=== PATIENT | male | born 2005 | race Caucasian/White ===

== ENCOUNTER 2023-03-05 23:35 | Emergency (ER) | payer SELFPAY ==
[~2023-03-05] VITALS: Ht 175.3 cm; Wt 76.2 kg
[2023-03-05 23:39] VITALS: BP 99/75; PULSE 92; RESP 16; TEMP 98.2; O2SAT 98
[2023-03-05] MEDS ORDERED: acetaminophen 325mg tablet PO ONE (23:50)
[2023-03-05] MEDS ORDERED: ibuprofen tablet 400 MG TABLET PO ONE (23:50)
== END 2023-03-06 00:30 | disposition home or self-care (01) ==
LOC: EDUNIT# 23:35 → ER 23:37
DX: M25.532 Pain in left wrist (principal); X58.XXXA Exposure to other specified factors, initial encounter; Y93.89 Activity, other specified; Y92.89 Other specified places as the place of occurrence of the external cause; Y99.8 Other external cause status
CPT/HCPCS: 29125; 73110; 99283

== ENCOUNTER 2023-04-01 12:49 | Emergency (ER) | payer OTHER ==
[~2023-04-01] VITALS: Ht 175.3 cm; Wt 73.6 kg
[2023-04-01 18:05] LABS: BASOPHILS % (AUTO) 0.3 % (0-1); EOSINOPHILS # (AUTO) 0.3 X10'3 (0-0.9); EOSINOPHILS % (AUTO) 2.8 % (0-6); HEMATOCRIT 47.7 % (42.0-52.0); HEMOGLOBIN 16.1 g/dl (14.0-17.9); LYMPHOCYTES # (AUTO) 3.1 X10'3 (1.1-4.8); LYMPHOCYTES % (AUTO) 26.6 % (21-51); MEAN CORPUSCULAR HEMOGLOBIN 28.8 PG (27.0-31.0); MEAN CORPUSCULAR HGB CONC 33.6 g/dL (33.0-36.5); MEAN CORPUSCULAR VOLUME 85.6 FL (78-98); MEAN PLATELET VOLUME 8.4 FL (7.4-10.4); MONOCYTES # (AUTO) 0.9 X10'3 (0-0.9); MONOCYTES % (AUTO) 7.2 % (2-12); NEUTROPHILS # (AUTO) 7.4 X10'3 (1.8-7.7); NEUTROPHILS % (AUTO) 63.1 % (42-75); PLATELET COUNT 270 X10'3 (140-440); RED BLOOD COUNT 5.58 X10'6 (4.70-6.10); RED CELL DISTRIBUTION WIDTH 13.8 % (11.5-14.5); WHITE BLOOD COUNT 11.8 X10'3 (4.5-11.0)
[2023-04-01] MEDS ORDERED: LORazepam 1 MG tablet PO ONE (18:05)
[2023-04-01 18:14] LABS: ALANINE AMINOTRANSFERASE 27 U/L (12-78); ALBUMIN 4.4 G/DL (3.4-5.0); ALKALINE PHOSPHATASE 104 IU/L (20-180); ANION GAP 6 (8-16); ASPARTATE AMINO TRANSFERASE 18 U/L (10-37); BILIRUBIN,TOTAL 0.3 MG/DL (0.1-1.0); BLOOD UREA NITROGEN 15 MG/DL (7-18); BUN/CREATININE RATIO 16.3 (10.0-20.0); CALCIUM 9.2 MG/DL (8.5-10.1); CHLORIDE 102 MMOL/L (99-107); CREATININE 0.92 MG/DL (0.60-1.10); GLUCOSE 120 MG/DL (70-104); POTASSIUM 3.9 MMOL/L (3.5-5.1); SODIUM 139 MMOL/L (135-145); TOTAL CARBON DIOXIDE 30.6 MMOL/L (24-32); TOTAL PROTEIN 8.7 G/DL (6.4-8.2); eCRCL 129 ML/MIN; eGFR > 90 ML/MIN
[2023-04-01 18:24] LABS: ETHANOL < 10 MG/DL (<10); SALICYLATE 1.6 MG/DL (4.0-20.0); THYROID STIMULATING HORMONE 0.89 ulU/ml (0.34-4.50)
[2023-04-01 18:29] LABS: ACETAMINOPHEN < 2.0 UG/ML (10-30)
[2023-04-01] MEDS ORDERED: OLAN10TA73 PO (19:30)
[2023-04-01 20:58] VITALS: BP 101/51; PULSE 58; RESP 18; TEMP 97.8; O2SAT 95
[2023-04-01] MEDS ORDERED: olanzapine 10mg tablet PO SCH (21:00)
[2023-04-02 06:19] LABS: URINE AMPHETAMINE SCREEN NEGATIVE (Neg); URINE BARBITUATE SCREEN NEGATIVE (Neg); URINE BENZODIAZEPINES SCREEN NEGATIVE (Neg); URINE CANNABINOID SCREEN POSITIVE (Neg); URINE COCAINE SCREEN NEGATIVE (Neg); URINE METHADONE SCREEN NEGATIVE (Neg); URINE OPIATE SCREEN NEGATIVE (Neg); URINE PHENCYCLIDINE SCREEN NEGATIVE (Neg)
== END 2023-04-02 17:57 | disposition home or self-care (01) ==
LOC: ER 12:49
DX: R45.851 Suicidal ideations (principal); Z20.822 Contact with and (suspected) exposure to COVID-19; F12.10 Cannabis abuse, uncomplicated
CPT/HCPCS: 36415; 80053; 80305; 80320; 80329; 84443; 85025; 87811; 99285; C2617